=== PATIENT | male | born 1980 | race Caucasian/White ===

== ENCOUNTER 2016-10-30 11:04 | Emergency (ER) | payer OTHER ==
--- NOTE | 2016-10-30 11:32 | ERNOTE ---
Medical Problem HPI - Narrative Date of Service: 10/30/16 - General Chief Complaint: Laceration Time Seen by Provider: 10/30/16 11:23 Source: patient, RN notes reviewed Exam Limitations: no limitations - Immun/Allergies/Home Medications Immunizations: IMMUNIZATION HX Immunizations Up to Date Yes History of Influenza Vaccine No Hx Pneumococcal Vaccination No Allergies/Adverse Reactions: Allergies No Known Allergies Allergy (Verified 10/30/16 11:12) Home Medications: HOME MEDICATIONS NK [No Home Medication] 10/30/16 [Last Taken Unknown] - History of Present History Narrative: 36 y/o male ambulatory to the ED for a forehead laceration. He was struck in the head with a squigee at work. He did not fall down or lose consciousness. He denies any other injuries. Date (Duration): 10/30/16 Time (Timing): 10:50 Review of Systems - Review of Systems Constitutional: Absent: recent illness, fatigue, malaise EYE: Absent: eye pain, vision changes ENT: Absent: ear discharge, nasal drainage, sore throat Respiratory: Present: no symptoms reported Cardiology: Absent: syncope Gastrointestinal/Abdominal: Absent: nausea, vomiting Genitourinary: Present: no symptoms reported Musculoskeletal: Absent: back pain, muscle pain, neck pain, joint pain Skin: Absent: rash, lesions, lumps, change in color Neurological: Absent: headache, dizziness/light-headedness Endocrine: Present: no symptoms reported Hematologic/Lymphatic: Absent: easy bruising, easy bleeding Psych: Present: no symptoms reported - Patient's Past Medical History Patient History - Medical: No pertinent hx Patient History - Cardiac/Respiratory: No pertinent hx Patient History - Cancer: No Hx of Cancer Patient History - Surgical Procedures: No surgical history Patient History - Other: None - Social History Living Situations: home Psych History: No pertinent hx Smoking Status: Former smoker Alcohol Use: none Drug Use: none - Immunizations Immunizations Up to Date: Yes - Last tetanus 2 yrs ago Hx Pneumococcal Vaccination: No History of Influenza Vaccine: No Physical Exam - Physical Exam General Appearance: Present: wd/wn, alert, no apparent distress Eye Exam: Normal inspection: bilateral, PERRL: bilateral, EOMI: bilateral Ears, Nose, Throat: Present: normal ENT inspection, normal pharynx. Absent: abnormal TM (R), abnormal TM (L), sinus pain/drainage, other - dental injury Neck: Present: normal inspection, nontender, supple, full range of motion. Absent: tender posterior midline Respiratory: Present: no respiratory distress, normal breath sounds, no accessory muscle use, lungs clear Cardiovascular/Chest: Present: regular rate, rhythm, no murmur Extremity Exam: Present: normal inspection, normal range of motion Neurological Exam: Present: alert, oriented, normal mood/affect, no motor/ sensory deficits Skin Exam: Present: normal color, warm/dry, other - laceration to right forehead at [facility] Progress - Vital Signs Patient's Vital Signs:: I have reviewed the patient's vital signs. Vital Signs: Vital Signs 10/30/16 11:08 Temperature 36.0 C L Pulse Rate 75 Respiratory 16 Rate Blood Pressure 146/80 O2 Sat by Pulse 100 Oximetry - Progress/Reassessment Chief Complaint: Laceration Progress:: Improved Procedures Right forehead at [facility] Anesthesia: Lidocaine w/ Epi Length of Repair/Wound (cm): 1.5 Wound's Depth/Shape: into subcutaneous, irregular, contused tissue Wound Explored: clean, to base, in bloodless field, no foreign body Wound Intervention: irrigated w/saline Distal NVT: neuro/vasc intact Wound Repaired With: sutures Suture Size/Type: 6-0, nylon Number of Sutures: 4 Layer Closure: Simple Wound Dressing: sterile dressing applied Complications: Pt leobadro procedure well Departure - Departure Clinical Impression: Forehead laceration Qualifiers: Encounter type: initial encounter Qualified Code(s): S01.81XA - Laceration without foreign body of other part of head, initial encounter Disposition: Home Follow Up Needed Condition: Good Instructions: Sutured Wound Care, [id number] Additional Instructions: See occupational health sheet Follow up there as scheduled to have sutures removed
[2016-10-30 13:41] VITALS: BP 140/87
== END 2016-10-30 12:22 | disposition home or self-care (01) ==
LOC: ER 11:04
PROC: 0JQ10ZZ Repair Face Subcutaneous Tissue and Fascia, Open Approach (ICD-10-PCS; principal; 2016-10-30)
DX: S01.81XA Laceration without foreign body of other part of head, initial encounter (principal); Y29.XXXA Contact with blunt object, undetermined intent, initial encounter; Y93.9 Activity, unspecified; Y92.69 Other specified industrial and construction area as the place of occurrence of the external cause; Y99.0 Civilian activity done for income or pay